=== PATIENT | male | born 1965 | race Caucasian/White ===

== ENCOUNTER 2021-07-25 11:29 | Day surgery (SDC) | payer MEDICARE, MEDICAID ==
[~2021-07-25] VITALS: Ht 167.6 cm; Wt 83.7 kg
[~2021-07-25 11:29] MED LIST: ESKALITH; LORTAB 7.5/5001 TAB PO; MELLARIL; NO HOME MEDICATIONS; UNABLE
[2021-07-25] MEDS ORDERED: TYLENOL 8 HR PO (12:40)
[2021-07-25] MEDS ORDERED: BIOFREEZE 0.2%-1 GE1 TOP (12:41)
[2021-07-25] MEDS ORDERED: SINEMET 10/101 UDTAB PO (12:42)
[2021-07-25] MEDS ORDERED: CLOZARIL PO (12:44)
[2021-07-25] MEDS ORDERED: CLOZAPINE200 MG PO (12:45)
[2021-07-25] MEDS ORDERED: CLOZAPINE50 MG PO (12:45)
[2021-07-25] MEDS ORDERED: DEPAKOTE 125MG125 M1 PO (12:46)
[2021-07-25] MEDS ORDERED: PROSCAR 5MG5 MG PO (12:47)
[2021-07-25] MEDS ORDERED: MUCUS-CHES100 MG/5 M PO (12:48)
[2021-07-25] MEDS ORDERED: IMODIUM 2MG CAPS2 MG PO (12:48)
[2021-07-25] MEDS ORDERED: IPRATROPIUM BROM3 M1 IH (12:49)
[2021-07-25] MEDS ORDERED: CLARITIN 1010 MG/TAB PO (12:49)
[2021-07-25] MEDS ORDERED: MAALOX ADVANCE148 ML PO (12:50)
[2021-07-25] MEDS ORDERED: LOPRESSOR 225 MG/TAB PO (12:51)
[2021-07-25] MEDS ORDERED: MILK OF MA400 MG/52 PO (12:51)
[2021-07-25] MEDS ORDERED: MUCINEX 60600 MG/TA1 PO (12:52)
[2021-07-25] MEDS ORDERED: MUCINEX DM 30 M1 TE1 (12:53)
[2021-07-25] MEDS ORDERED: MULTIPLE VITAMI1 TA1 PO (12:53)
[2021-07-25] MEDS ORDERED: PREDNISONE 5MG5 MG PO (12:54)
[2021-07-25] MEDS ORDERED: PEPCID 20MG TAB20 MG PO (12:54)
[2021-07-25] MEDS ORDERED: PULMICORT90 MCG/Act IH (12:55)
[2021-07-25] MEDS ORDERED: TRANSDERM-0.5 MG/21 TD (12:56)
[2021-07-25 13:24] VITALS: BP 125/96; PULSE 85; TEMP 98.3
[2021-07-25 14:30] VITALS: BP 113/78; PULSE 78
--- NOTE | 2021-07-25 14:39 | NUR ---
1430 - PT arrived from procedure and was settled by Carlota COPELAND. PT provided with toast with jam and ice water to drink. Visitor is present. Warm blankets applied. Call marie is within reach.
[2021-07-25 14:45] VITALS: BP 104/87; PULSE 80
--- NOTE | 2021-07-25 14:50 | NUR ---
1445 - VSS. PT has finished his snack and drink. Call marie remains within reach. Awaiting DC reports to print from
[2021-07-25 15:00] VITALS: BP 124/83; PULSE 83
--- NOTE | 2021-07-25 15:00 | NUR ---
1500 - VSS. PT expressed desire to be discharged, however reports still have not printed. DR and RN's aware. Call marie remains within reach. 1515- VSS. Call marie remains within reach. PT continues to deny nausea and pain.
[2021-07-25 15:15] VITALS: BP 120/82; PULSE 85
--- NOTE | 2021-07-25 15:40 | NUR ---
has spoken with the PT. Reports printed. RN to continue with DC process.
[2021-07-25 15:45] VITALS: BP 110/87; PULSE 85
--- NOTE | 2021-07-25 15:50 | NUR ---
DC instructions and educational material reveiwed with the PT and visitor, both verbalized understanding and the PT signed the related paperwork. Questions answered to PT satisfaction. IV discontinued. Catheter tip intact. Pressure bandage applied.
--- NOTE | 2021-07-25 15:57 | NUR ---
PT is being assisted with changing into personal clothes 2:1, then stand and pivot to wheelchair to be dismissed from endo. Call marie remains within reach if needed.
--- NOTE | 2021-07-25 16:00 | NUR ---
PT dismissed from endo via wheelchair to the PT entrence by Caren COPELAND. PT has DC packet and personal belongings in hand, and was transferred into the care of his aid who is present to drive private van.
== END 2021-07-25 16:00 | disposition home or self-care (01) ==
LOC: SDCO 11:29
DX: K21.00 Gastro-esophageal reflux disease with esophagitis, without bleeding (principal); Z79.899 Other long term (current) drug therapy
CPT/HCPCS: J2704; J7030

== ENCOUNTER 2023-12-03 06:34 | Day surgery (SDC) | payer MEDICARE, MEDICAID ==
[~2023-12-03] VITALS: Ht 170.2 cm; Wt 77.5 kg
[~2023-12-03 06:34] MED LIST changes: +BIOFREEZE 0.2%-1 GE1 TOP; +CLARITIN 1010 MG/TAB PO; +CLOZAPINE200 MG PO; +CLOZAPINE50 MG PO; +CLOZARIL PO; +DEPAKOTE 125MG125 M1 PO; +IMODIUM 2MG CAPS2 MG PO; +IPRATROPIUM BROM3 M1 IH; +LOPRESSOR 225 MG/TAB PO; +LR 1,000 ML IV SCH; +MAALOX ADVANCE148 ML PO; +MILK OF MA400 MG/52 PO; +MUCINEX 60600 MG/TA1 PO; +MUCINEX DM 30 M1 TE1; +MUCUS-CHES100 MG/5 M PO; +MULTIPLE VITAMI1 TA1 PO; +Ondansetron 4 MG/2 ML VIAL IV PRN; +PEPCID 20MG TAB20 MG PO; +PREDNISONE 5MG5 MG PO; +PROSCAR 5MG5 MG PO; +PULMICORT90 MCG/Act IH; +SINEMET 10/101 UDTAB PO; +TRANSDERM-0.5 MG/21 TD; +TYLENOL 8 HR PO
[2023-12-03 08:30] VITALS: BP 116/67; PULSE 86
[2023-12-03 08:45] VITALS: BP 131/83; PULSE 86
[2023-12-03 09:00] VITALS: BP 113/87; PULSE 87
--- NOTE | 2023-12-03 10:27 | NUR ---
0830- PT BACK TO [facility] FROM PROCEDURE. ASSISTED TO RECLINER WITH RN. MONITORS PLACE AND VS OBTAINED. PT DENIED PAIN OR NAUSEA. DOES NOT WANT FOOD OR WATER CURRENTLY. 2L NC PER BASELINE 0845- VS STABLE. CRACKERS AND JUICE GIVEN TO PT. 0900- IV REMOVED PER ORDERS. 902- DR. BRAVO IN TO TALK WITH PT. 907- DISCHARGE INSTRUCTIONS GIVEN TO PT. ANSWERED ALL QUESTIONS IN FULL. 917- PT DISCHARGED VIA WHEELCHAIR TO PRIVATE VEHCILE DRIVEN BY [facility] STAFF.
[2023-12-03 13:18] VITALS: BP 123/82; PULSE 93; TEMP 97.2
[2023-12-03] MEDS ORDERED: TYLENOL 325MG325 MG PO (13:24)
[2023-12-03] MEDS ORDERED: SINEMET 10/101 UDTAB PO (13:25)
[2023-12-03] MEDS ORDERED: CLOZARIL PO (13:26)
[2023-12-03] MEDS ORDERED: FAZACLO200 MG PO (13:26)
[2023-12-03] MEDS ORDERED: ALLEGRA ALLERG180 MG PO (13:27)
[2023-12-03] MEDS ORDERED: ATROVENT INHALE14 GM IH (13:28)
[2023-12-03] MEDS ORDERED: TOPROL XL 25MG25 MG PO (13:29)
[2023-12-03] MEDS ORDERED: PEPCID 20MG TAB20 MG PO (13:31)
[2023-12-03] MEDS ORDERED: PREDNISONE 5MG5 MG PO (13:32)
[2023-12-03] MEDS ORDERED: TRIANEX0.05% TOP (13:33)
== END 2023-12-03 09:20 ==
LOC: SDCO 06:34
DX: Z12.11 Encounter for screening for malignant neoplasm of colon (principal); J44.9 Chronic obstructive pulmonary disease, unspecified; Z86.0100 Personal history of colon polyps, unspecified; Z87.891 Personal history of nicotine dependence; Z80.0 Family history of malignant neoplasm of digestive organs
CPT/HCPCS: J2704; J7120